=== PATIENT | female | born 1935 | race Caucasian/White ===

== ENCOUNTER 2019-03-20 12:48 | Day surgery (SDC) | payer OTHER ==
[~2019-03-20] VITALS: Ht 165.1 cm; Wt 65.8 kg
--- NOTE | ~2019-03-20 | O ---
[facility] [place] [address] OPERATIVE REPORT Name: ENEIDA LILLY Room #: [facility] [place]#: [id number] Admission: 03/20/19 Attend Phys: Zhane Pascal, Discharge: 03/20/19 Date of : 37 Report #: [id number] THIS REPORT FOR: cc: Luis Angel Villalba MD, Matthew S. MD Deardorff,Zhane Whitman MD ~ THIS REPORT FOR: //name// CC: Luis Angel Pascal DATE OF SERVICE: 03/20/2019 PREOPERATIVE DIAGNOSES: 1. 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 POSTOPERATIVE DIAGNOSES: 1. 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 PROCEDURES PERFORMED: 1. Left thumb carpometacarpal arthroplasty, LRTI. 2. Left thumb proximal trapezoid excision with interposition arthroplasty. SURGEON: Zhane Pascal MD ANESTHESIA: General mask anesthesia. ESTIMATED BLOOD LOSS: 1 mL. TOURNIQUET TIME: 45 minutes. COMPLICATIONS: None. CONDITION: Stable. DISPOSITION: Recovery room. INDICATIONS: The patient is an 83-year-old female with the above-mentioned diagnoses. She elects for operative treatment. The risks, benefits, alternatives and complications were discussed including, but not limited to infection, damage to vessels or nerves, incomplete relief or worsening of any symptoms. Informed consent was obtained. The correct extremity was identified and labeled by myself after verbal confirmation of the patient as well as visual confirmation and signed informed consent. [address] [address] OPERATIVE REPORT Name: ENEIDA LILLY Room #: [facility] [place] M.R.#: [id number] Admission: 03/20/19 Attend Phys: Zhane Pascal, Discharge: 03/20/19 Date of : 37 Report #: [id number] DESCRIPTION OF PROCEDURE: The patient was brought to the operating room and placed on the supine position. She received preoperative antibiotics. Tourniquet was placed over padding on the patient's left lower extremity and was sterilely prepped and draped in the usual fashion. Final timeout was taken to verify correct patient, operative procedure, and site, all concurred. The arm was elevated, exsanguinated and tourniquet inflated. Next, a Saunders approach was done to the thumb CMC joint. Dissection was carried down through subcutaneous tissue with tenotomy scissors. The thenars were elevated off the capsule. The capsule was bulging from the inflammation. The capsule was incised. Periosteum was incised. The trapezium was completely excised using a combination of osteotome, rongeur and curette. The FCR tendon was identified and was carefully protected. It was identified in the proximal portion of Saunders incision and a mosquito hemostat was placed beneath that. Two incisions were made at 5 cm, both proximally along the course of the FCR tendon. The FCR tendon was identified and each of mosquito hemostat was placed beneath each to confirm the identity. It was then transected proximally and taken all the way out and dissected all the way to its insertion. It was then split into two. Next, the scaphotrapezoid joint was evaluated. There was significant amount of arthrosis and so the proximal 3 mm of the trapezoid was excised with an osteotome. Next, dissection was carried down over the metacarpal and Hohmann retractor was placed over the ulnar side of the metacarpal at a 2.5 and then 3.5 mm drill bit which was used to create a hole from dorsal distal to volar proximal. The wounds were then thoroughly irrigated. An extensive examination was undertaken to ensure no significant bone fragments were made as well as no loose bodies between the thumb and index metacarpal bases. Next, one-half of the FCR was taken into the metacarpal and then we felt axial traction and adduction, it was sutured to the periosteum with 4-0 Ethibond suture. It was then taken back in the trapezial space, wound around itself pulled back out and sutured to itself as well as the periosteum with 4-0 Ethibond suture. Fluoroscopy was brought in which showed good scaphotrapezoid space and absence of any significant bone fragments as well as good position of the thumb metacarpal in relation to the index metacarpal at rest and with axial load. Next, approximately 3 cm of the half of the FCR tendon was sutured into the scaphotrapezoid space with a 4-0 Ethibond suture into the capsule. Next, the other half of the FCR was sutured into trapezial space using 5-0 Vicryl suture. A watertight capsular closure was performed. The skin was closed with 4-0 nylon suture. Wounds were infiltrated with a total of approximately 5 mm coarse Marcaine. She was placed in a bulky dressing and thumb spica splint. All fingers were pink with brisk capillary refill at the conclusion of case after deflation of tourniquet. All sponge and needle counts were correct. The patient was transferred to postoperative recovery room in stable condition. By: [id number] Zhane Pascal MD /nt
[~2019-03-20 12:48] MED LIST: BONIVA150 MG PO; CALCIUM + VITA1 EACH PO; ELIQUIS5 MG PO; LIPITOR20 MG PO; MIRALAX119 GM PO; MULTI VITAMIN1 EACH PO; OMEGA 3 500 SO1 EACH PO; PRESERVISION A1 EACH PO; SOTALOL80 MG PO; SPIRONOLACTONE100 M1 PO; STOOL SOFTENER100 M1 PO
[2019-03-20 13:54] LABS: CALCIUM 9.9 mg/dL (8.5-10.1); CREATININE 0.9 mg/dL (0.6-1.0); POTASSIUM 3.9 mmol/L (3.5-5.1)
[2019-03-20 14:04] VITALS: BP 107/65
[2019-03-20 18:04] VITALS: BP 107/65
== END 2019-03-20 18:49 | disposition home or self-care (01) ==
LOC: TBA 12:48 → OR 12:48 → TBA 12:57 → OR 18:49
PROVIDERS: Anesthesiology
DX: M18.12 Unilateral primary osteoarthritis of first carpometacarpal joint, left hand (principal); M19.032 Primary osteoarthritis, left wrist; I10 Essential (primary) hypertension; E78.5 Hyperlipidemia, unspecified; I48.91 Unspecified atrial fibrillation; Z98.890 Other specified postprocedural states; Z79.899 Other long term (current) drug therapy; Z95.0 Presence of cardiac pacemaker; Z85.828 Personal history of other malignant neoplasm of skin; Z79.01 Long term (current) use of anticoagulants; Z98.41 Cataract extraction status, right eye; Z98.42 Cataract extraction status, left eye; Z88.8 Allergy status to other drugs, medicaments and biological substances; Z88.6 Allergy status to analgesic agent
CPT/HCPCS: 50010; 50101; 50386; 56520; 56525; 56526; 56528; 57006; 57091; 57178; 62110; 62900; 70005

== ENCOUNTER → 2019-09-05 | Outpatient (CLI) | payer OTHER | LOC: LAB 10:13 | PROVIDERS: ATTEND Anesthesiology | DX: Z01.818 Encounter for other preprocedural examination (principal); Z11.59 Encounter for screening for other viral diseases ==